=== PATIENT | male | born 1985 | race Caucasian/White ===

== ENCOUNTER 2024-07-18 18:23 | Emergency (ER) | payer BC, SELFPAY ==
[2024-07-18] VITALS (23 sets, daily range): BP systolic 118–150; BP diastolic 89–108; PULSE 62–96; RESP 16; TEMP 36.3; O2SAT 95–100; BMI 28.8
--- OUTSIDE RECORDS SUMMARY | 2024-07-18 18:26 | XMS_ITS | Clinical Summary ---
Author Organization [employer] [facility] Address [place] [address] Care Team Providers Care Social Contact Worker Name Role Phone John High DO Primary Care Provider [phone] Allergies No known active allergies Medications omeprazole 20 mg tabletIndication s:Gastroesophage al reflux disease, unspecified whether esophagitis present Take 1 Tablet (20 mg) by mouth once daily before a meal. 30 Tablet 1 3 Active nystatin powder (MYCOSTATIN) powderIndication s:Tinea cruris Apply 1 Strip topically to affected area(s) two times daily. 60 g 4 Active Active Problems No known active problems Immunizations Name Administration Dates Next Due AMB Influenza, IIV4 PF (=>6 mos Flulaval,Fluzone Fluarix)(Flu Clinic Only) 04/10/2020 COVID-19 vaccine (EximSoft-Trianz-Bio NTech 30mcg/0.3mL) 12YO+ BIVALENT PF, MDV 05/06/2022 Influenza, IIV3 (Age >=3 years) 06/11/2007,06/09 Influenza, IIV4 03/17/2023,04/21/2021 Influenza,CCIIV4 PRESERV FREE 04/24/2022 Meningococcal Vaccine (Menomune) 12/12/2002 Td (Age >=7 Years) 02/12/2022 Tdap 11/05/2010 Family History Medical History Relation Name Comments Diabetes Maternal Grandfather Relation Name Status Comments Father Alive Maternal Grandfather Mother Alive Social History Tobacco Use Types Packs/Day Years Used Date Smoking Tobacco: Never Smokeless Tobacco: Never Tobacco Cessation:Counseling Given: Yes Alcohol Use Standard Drinks/Week Comments Yes 2 (1 standard drink = 0.6 oz pur e alcohol) PHQ-2 Answer Date Recorded PHQ-2 TOTAL SCORE 0 02/23/2023 Social Connections Answer Date Recorded Frequency of Communication with Friends and Fami ly 0 02/23/2023 Financial Resource Strain Answer Date R ecorded Difficulty of Paying Living Expenses 3 02/23/2023 Difficulty of Paying Living Expenses Not on file 02/23/2023 Food Insecurity Answer Date Recorded Worried About Running Out of Food in the Last Ye ar 1 02/23/2023 Transportation Needs Answer Date Record ed Lack of Transportation (Medical) 1 02/23/2023 Housing Stability Answer Date Recorded Unable to Pay for Housing in the Last Year 1 02/23/2023 Sex and Gender Information Value Date Recorded Sex Assigned at Male 08/30/2020 5:44 AM RESIDENTIAL SOLAR CONSULTANT Legal Sex Male 5:24 AM RESIDENTIAL SOLAR CONSULTANT Gender Identity Male 08/30/2020 5:44 AM RESIDENTIAL SOLAR CONSULTANT Sexual Orientation Straight 08/30/2020 5: 44 AM RESIDENTIAL SOLAR CONSULTANT Occupation Industry Job Start Date Job End Date Not on file Not on file Not on file Not on file Obstetrics History Last Filed Vital Signs Vital Sign Reading Time Taken Comments Blood Pressure 134/91 09/20/2023 1:36 PM CDT Pulse 73 09/20/2023 1:36 PM CDT Temperature 36.7 C (98.1 F) 10/01/2020 9:11 AM CDT Respiratory Rate - - Oxygen Saturation 97% 08/04/2023 8:19 AM RESIDENTIAL SOLAR CONSULTANT Inhaled Oxygen Concentration - - Weight 90.6 kg (199 lb 12.8 oz) 08/04/2023 8:19 AM RESIDENTIAL SOLAR CONSULTANT Height 173 cm (5' 8.11) 06/04/2023 9: 24 AM RESIDENTIAL SOLAR CONSULTANT Body Mass Index 30.28 06/04/2023 9:24 AM RESIDENTIAL SOLAR CONSULTANT Plan of Treatment Health Maintenance Due Date Last Done Comments Depression screening for age 12+ 02/24/2024 02/23/2023, 08/30/2020, 07/22/2018, Additional history exists COVID-19 vaccine series ( season) 2024 05/06/2022, 06/03/2021, 10/29/2020, Additional history exists Influenza for age 9-49 02/27/2024 , 04/24/2022, 04/21/2021, Additional history exists BMI (ht and wt on same day) for age 18+ 06/04/2024 06/04/2023, 02/23/2023, 10/01/2020, Additional history exists Lipids for age 35-44 02/12/2027 02/12/2022 Tetanus booster 02/13/2032 02/12/2022, 11/05/2010 Tdap Completed 11/05/2010 HIV for age 15-65 Completed 09/20/2023, , 05/18/2022, Additional history exists Hepatitis C screening for age 18-79 Completed 09/20/2023, 06/04/2023, 08/30/2020, Additional history exists Pneumococcal series for age 6-49 Aged Out No longer eligible based on patient's age to complete this topic Procedures Procedure Name Priority Date/Time Associated Diagnosis Comments ANTI HIV 1/2 Routine 09/20/2023 2:13 PM CDT Routine screening for STI (sexually transmitted infection) ANTI HCV Routine 09/20/2023 2:13 PM CDT Routine screening for STI (sexually transmitted infection) LIPID PANEL W REFLEX MEASURED LDL Routine 02/12/2022 8:31 AM CDT Screening for lipid disorders from Last 3 Months or Most Recently Relevant to Health Maintenance Results * ANTI HCV (09/20/2023 2:13 PM CDT) HEPATITIS C ANTIBODY Non-Reacti ve Non-React jorge a 09/21/2023 12:19 AM CDT [facility] Comment:Please note, per www .CDC.gov: If a patient is known to be at high risk of HCV infection, or is symptomatic, and the physician's suspicion of HCV infection is high, HCV RNA testing is often employed and is of diagnostic value, even after an initial negative anti-HCV test result. Blood BLOOD SPECIMEN / Unknown Venipuncture / Unknown 09/20/2023 2:13 PM CDT 09/20/2023 2:16 PM CDT Vanessa Morales DO SEND OUTS Final Resu lt Performing Organization Address [facility] Co de Phone Number [facility] [address] [place] [id number], [place] * ANTI HIV 1/2 (09/20/2023 2:13 PM CDT) HIV-1/HIV-2 SCREEN Non-Reacti ve Non-Reacti ve 09/21/2023 12:55 AM CDT [facility] Comment:HIV-1 p24 and HIV-1/ HIV-2 Ab Not Detected. Blood BLOOD SPECIMEN / Unknown Venipuncture / Unknown 09/20/2023 2:13 PM CDT 09/20/2023 2:16 PM CDT Vanessa Morales DO SEND OUTS Final Resu lt Performing Organization Address [facility] de Phone Number [facility] [address] [place] [phone], [place] * (ABNORMAL) LIPID PANEL W REFLEX MEASURED LDL [[id number]] (02/12/2022 8:31 AM CDT) CHOLESTEROL,TOTAL 240(H) 100 - 199 mg/dL 02/12/2022 6:16 PM CDT [facility] TRIGLYCERIDES 86 <150 mg/dL 02/12/2022 6:16 PM CDT [facility] HDL CHOLESTEROL 58 >40 mg/dL 6:16 PM CDT [facility] NON-HDL CHOLESTEROL 182(H) <145 mg/dl 02/12/2022 6:16 PM CDT [facility] CHOL/HDL RATIO 4.14 <4.50 02/12/2022 6:16 PM CDT [facility] LDL CHOLESTEROL 165(H) <=130 mg/dL 02/12/2022 6:16 PM CDT [facility] VLDL CHOLESTEROL 17 <=30 mg/dL 02/12/2022 6:16 PM CDT [facility] PROVIDER ORDERED STATUS RANDOM 02/12/2022 6:16 PM CDT [facility] Blood BLOOD SPECIMEN / Unknown Venipuncture / Unknown 02/12/2022 8:31 AM CDT 02/12/2022 8:31 AM CDT us John High DO CHEMISTRY Final Result [facility] [address] [place] [address], [place] from Last 3 Months or Most Recently Relevant to Health Maintenance Insurance [facility] Care Teams Social Contact Worker Relationship Specialty Start Date End Date [place] [address] [address] [address] PCP - General Family Practice 02/23/23
--- NOTE | 2024-07-18 19:20 | CRLHL7_ITS ---
For Patients: As a result of the Cures Act, medical imaging exams and procedure reports are released immediately into your electronic medical record. You may view this report before your referring provider. If you have questions, please contact your health care provider. INDICATION: Chest pain. TECHNIQUE: Chest 2 views. COMPARISON: May 18, 2024. FINDINGS: Cardiovascular and mediastinum: Cardiomediastinal silhouette is within normal limits. Lungs and pleural spaces: Lungs are clear. No sign of pleural effusion. No pneumothorax. Bones and soft tissues: No significant findings. IMPRESSION: No acute findings and no significant change from the prior exam. Dictated by Sasha Carnes MD @ 07/18/2024 7:39:31 PM (Electronically Signed)
[2024-07-18 19:33] LABS: Basophils Absolute Auto 0.01 K/uL (0.00-0.30); Basophils Percent Auto 0.1 % (0.0-3.0); Eosinophils Absolute Auto 0.09 K/uL (0.00-0.50); Eosinophils Percent Auto 1.2 % (0.0-7.0); Hematocrit 47.1 % (37.0-53.0); Hemoglobin* 15.9 gm/dL (13.5-17.5); Immature Granulocytes Abs Auto 0.01 K/uL (0.00-0.30); Immature Granulocytes Pct Auto 0.1 %; Lymphocytes Absolute Auto 2.94 K/uL (0.90-2.90); Lymphocytes Percent Auto 39.3 % (20-44); Mean Corpuscular HGB Conc 34 gm/dL (32-36); Mean Corpuscular Hemoglobin 31 pg (26-34); Mean Corpuscular Volume 90 fL (80-100); Monocytes Percent Auto 7.3 % (0.0-11.0); Neutrophils Absolute Auto 3.89 K/uL (1.7-7.0); Platelet Count* 238 K/uL (140-440); RDW Coefficient of Variation % 12.1 % (11.5-15.5); Red Blood Count 5.21 m/uL (4.30-5.90); White Blood Count* 7.49 K/uL (4.50-11.00)
[2024-07-18 19:42] LABS: Troponin, Point-of-Care* 0.01 ng/ml (0.01-0.04)
--- OUTSIDE RECORDS SUMMARY | 2024-07-18 19:43 | XMS_ITS | Clinical Summary ---
Author Organization [email or web address] [facility] Address [place] [address] Care Team Providers Care Software Test Analyst Name Role Phone John High DO Primary Care Provider [phone] Allergies No known active allergies Medications omeprazole [...] Flulaval,Fluzone Fluarix)(Flu Clinic Only) 04/10/2020 COVID-19 vaccine (TouchBistro-Bio NTech 30mcg/0.3mL) 12YO+ BIVALENT PF, MDV 05/06/2022 [...] Sex Assigned at Male 08/30/2020 5:44 AM DIVISION SERGEANT Legal Sex Male 5:24 AM DIVISION SERGEANT Gender Identity Male 08/30/2020 5:44 AM DIVISION SERGEANT Sexual Orientation Straight 08/30/2020 5: 44 AM DIVISION SERGEANT Occupation Industry Job Start Date Job End [...] - Oxygen Saturation 97% 08/04/2023 8:19 AM DIVISION SERGEANT Inhaled Oxygen Concentration - - Weight 90.6 kg (199 lb 12.8 oz) 08/04/2023 8:19 AM DIVISION SERGEANT Height 173 cm (5' 8.11) 06/04/2023 9: 24 AM DIVISION SERGEANT Body Mass Index 30.28 06/04/2023 9:24 AM DIVISION SERGEANT Plan of Treatment Health Maintenance Due Date [...] Non-React jorge a 09/21/2023 12:19 AM CDT [facility] Comment:Please note, per www [...] OUTS Final Resu lt Performing Organization Address [facility] Co de Phone Number [facility] [address] [place] [phone], [place] * ANTI HIV 1/2 (09/20/2023 2:13 PM CDT) HIV-1/HIV-2 SCREEN Non-Reacti ve Non-Reacti ve 09/21/2023 12:55 AM CDT [facility] Comment:HIV-1 p24 and HIV-1/ HIV-2 Ab Not Detected. Blood BLOOD SPECIMEN / Unknown Venipuncture / Unknown 09/20/2023 2:13 PM CDT 09/20/2023 2:16 PM CDT Vanessa Morales DO SEND OUTS Final Resu lt Performing Organization Address [facility] de Phone Number [facility] [address] [place] [phone], [place] * (ABNORMAL) LIPID PANEL W REFLEX MEASURED LDL [[id number]] (02/12/2022 8:31 AM CDT) CHOLESTEROL,TOTAL 240(H) 100 - 199 mg/dL 02/12/2022 6:16 PM CDT [facility] TRIGLYCERIDES 86 <150 mg/dL 02/12/2022 6:16 PM CDT [facility] HDL CHOLESTEROL 58 >40 mg/dL 6:16 PM CDT [facility] NON-HDL CHOLESTEROL 182(H) <145 mg/dl 02/12/2022 6:16 PM CDT [facility] CHOL/HDL RATIO 4.14 <4.50 02/12/2022 6:16 PM CDT [facility] LDL CHOLESTEROL 165(H) <=130 mg/dL 02/12/2022 6:16 PM CDT [facility] VLDL CHOLESTEROL 17 <=30 mg/dL 02/12/2022 6:16 PM CDT [facility] PROVIDER ORDERED STATUS RANDOM 02/12/2022 6:16 PM CDT [facility] Blood BLOOD SPECIMEN / Unknown Venipuncture / Unknown 02/12/2022 8:31 AM CDT 02/12/2022 8:31 AM CDT us John High DO CHEMISTRY Final Result [facility] [address] [place] [address], [place] from Last 3 Months or Most Recently Relevant to Health Maintenance Insurance [facility] Care Teams Software Test Analyst Relationship Specialty Start Date [place] [address] [address] [place] [address] PCP - General Family Practice 02/23/23
--- NOTE | 2024-07-18 19:45 | ED.SOB ---
HPI - SOB/Dyspnea General Date Seen: 07/18/24 <Nelson Zamora MD - Last Filed: 07/18/24 21:26> Chief Complaint: Shortness of Breath/Dyspnea <Nelson Zamora MD - Last Filed: 07/18/24 21:26> Stated Complaint: Sent by UC-left arm and jaw pain, SOB <Nelson Zamora MD - Last Filed: 07/18/24 21:26> Time Seen by Provider: 07/18/24 19:06 <Nelsno Zamora MD - Last Filed: 07/18/24 21:26> Source: patient <Nelson Zamora MD - Last Filed: 07/18/24 21:26> Mode of arrival: ambulatory <Nelson Zamora MD - Last Filed: 07/18/24 21:26> Limitations: no limitations <Nelson Zamora MD - Last Filed: 07/18/24 21:26> History of Present Illness HPI Narrative: Patient is the 38-year-old gentleman, who presents here with shortness of breath he was 1st seen in urgent care, complains of shortness of breath the last few days, any sort of activities like conversing or walking. He had previous symptoms like this in April when he was described to have walking pneumonia. He has may had some left arm and jaw pain today, he admits to anxiety however when he was at urgent care any said the longer was her the more anxiety add. He does have a history of being on a flight approximately 1 week ago from [place] No previous history of cardiac disease, no history of DVTs or pulmonary emboli, No history of hypertension, elevated lipids, and diabetes, no smoking history, family history of his grandfather having a pacemaker in his 70s. Did receive both influenza and COVID vaccinations. Although the most recent COVID he said he did not have. Denies any pleuritic pain, denies any chest discomfort, denies any cough really associated with this hemoptysis, nausea vomiting, back pain, <Nelson Zamora MD - Last Filed: 07/18/24 21:26> Known history of: recurrent pneumonia <Nelson Zamora MD - Last Filed: 07/18/24 21:26> Treatment prior to arrival: none <Nelson Zamora MD - Last Filed: 07/18/24 21:26> Related Data Home oxygen amount: none <Nelson Zamora MD - Last Filed: 07/18/24 21:26> Home Medications: Home Medications ?Medication ?Instructions ?Recorded ?Confirmed No Known Home Medications 07/18/24 07/18/24 <Nelson Zamora MD - Last Filed: 07/18/24 21:26> Allergies/Adverse Reactions: Allergies Allergy/AdvReac Type Severity Reaction Status Date / Time No Known Drug Allergies Allergy Verified 07/18/24 17:28 <Nelson Zamora MD - Last Filed: 07/18/24 21:26> [facility] Social History: Social History Smoking Status: Never smoker Do you use any of these nicotine containing products: None How often do you have a drink containing alcohol: never AUDIT-C Alcohol total score: 0 Non-prescribed substance use: denies use <Nelson Zamora MD - Last Filed: 07/18/24 21:26> Exam Narrative: Exam Narrative: On examination he is in no apparent distress he is seen and stabilization room 2 he is speaking to me in full sentences does not appear to be short of breath, pupils equal round reactive to light there is no scleral icterus redness is TMs are normal his oropharynx normal there is no adenopathy anterior posterior chains his chest is good air entry bilaterally no wheezing crackles noted his heart sounds no clicks murmurs or gallops there is no wheezing audible. No pleuritic pain, or splinting notable. Abdomen is soft, no tenderness to palpation, easily reducible umbilical hernias noted. Moves all extremities independently well absence of edema of his lower extremities, and negative Homans sign. Skin reveals no petechiae rashes, neurologically intact moving upper lower extremities both proximal distal muscle strength and purposeful movement are normal <Nelson Zamora MD - Last Filed: 07/18/24 21:26> Const: Vital Signs, click to edit/add: Vital Signs - 24 hr 07/18/24 18:29 07/18/24 18:35 07/18/24 19:38 Temperature 97.4 F L Pulse Rate 75 Pulse Rate [Pulse Oximeter] 96 Respiratory Rate 16 Blood Pressure Blood Pressure [Ri ght Upper Arm] 150/108 H Pulse Oximetry 99 100 96 Oxygen Delivery Me thod Room Air 07/18/24 19:45 07/18/24 20:00 07/18/24 20:02 Temperature Pulse Rate 74 71 71 Pulse Rate [Pulse Oximeter] Respiratory Rate Blood Pressure 129/106 H Blood Pressure [Ri ght Upper Arm] Pulse Oximetry 97 97 97 Oxygen Delivery Me thod 07/18/24 20:15 07/18/24 20:30 07/18/24 20:32 Temperature Pulse Rate 72 72 71 Pulse Rate [Pulse Oximeter] Respiratory Rate Blood Pressure 140/103 H Blood Pressure [Ri ght Upper Arm] Pulse Oximetry 97 97 95 Oxygen Delivery Me thod 07/18/24 20:45 07/18/24 21:00 07/18/24 21:01 Temperature Pulse Rate 75 72 69 Pulse Rate [Pulse Oximeter] Respiratory Rate Blood Pressure 136/99 H Blood Pressure [Ri ght Upper Arm] Pulse Oximetry 96 95 97 Oxygen Delivery Me thod 07/18/24 21:15 07/18/24 21:30 07/18/24 21:32 Temperature Pulse Rate 68 70 67 Pulse Rate [Pulse Oximeter] Respiratory Rate Blood Pressure 118/89 Blood Pressure [Ri ght Upper Arm] Pulse Oximetry 97 97 97 Oxygen Delivery Me thod 07/18/24 21:33 07/18/24 21:45 07/18/24 22:00 Temperature Pulse Rate 66 78 72 Pulse Rate [Pulse Oximeter] Respiratory Rate Blood Pressure Blood Pressure [Ri ght Upper Arm] Pulse Oximetry 96 97 97 Oxygen Delivery Me thod 07/18/24 22:01 07/18/24 22:22 Temperature Pulse Rate 67 74 Pulse Rate [Pulse Oximeter] Respiratory Rate Blood Pressure 128/95 H Blood Pressure [Ri ght Upper Arm] Pulse Oximetry 96 99 Oxygen Delivery Me thod <Nelson Zamora MD - Last Filed: 07/18/24 21:26> Vital Signs, click to edit/add: Vital Signs - 24 hr 07/18/24 18:29 07/18/24 18:35 07/18/24 19:38 Temperature 97.4 F L Pulse Rate 75 Pulse Rate [Pulse Oximeter] 96 Respiratory Rate 16 Blood Pressure Blood Pressure [Ri ght Upper Arm] 150/108 H Pulse Oximetry 99 100 96 Oxygen Delivery Me thod Room Air 07/18/24 19:45 07/18/24 20:00 07/18/24 20:02 Temperature Pulse Rate 74 71 71 Pulse Rate [Pulse Oximeter] Respiratory Rate Blood Pressure 129/106 H Blood Pressure [Ri ght Upper Arm] Pulse Oximetry 97 97 97 Oxygen Delivery Me thod 07/18/24 20:15 07/18/24 20:30 07/18/24 20:32 Temperature Pulse Rate 72 72 71 Pulse Rate [Pulse Oximeter] Respiratory Rate Blood Pressure 140/103 H Blood Pressure [Ri ght Upper Arm] Pulse Oximetry 97 97 95 Oxygen Delivery Me thod 07/18/24 20:45 07/18/24 21:00 07/18/24 21:01 Temperature Pulse Rate 75 72 69 Pulse Rate [Pulse Oximeter] Respiratory Rate Blood Pressure 136/99 H Blood Pressure [Ri ght Upper Arm] Pulse Oximetry 96 95 97 Oxygen Delivery Me thod 07/18/24 21:15 07/18/24 21:30 07/18/24 21:32 Temperature Pulse Rate 68 70 67 Pulse Rate [Pulse Oximeter] Respiratory Rate Blood Pressure 118/89 Blood Pressure [Ri ght Upper Arm] Pulse Oximetry 97 97 97 Oxygen Delivery Me thod 07/18/24 21:33 07/18/24 21:45 07/18/24 22:00 Temperature Pulse Rate 66 78 72 Pulse Rate [Pulse Oximeter] Respiratory Rate Blood Pressure Blood Pressure [Ri ght Upper Arm] Pulse Oximetry 96 97 97 Oxygen Delivery Me thod 07/18/24 22:01 07/18/24 22:22 Temperature Pulse Rate 67 74 Pulse Rate [Pulse Oximeter] Respiratory Rate Blood Pressure 128/95 H Blood Pressure [Ri ght Upper Arm] Pulse Oximetry 96 99 Oxygen Delivery Me thod <Magalie Johnson MD - Last Filed: 07/18/24 22:38> Documenting provider has reviewed patient's vital signs: yes <Nelson Zamora MD - Last Filed: 07/18/24 21:26> Course Course ED Course: Jerrod was signed out by Dr. Zaomra who strongly felt that Jerrod was experiencing an asthma exacerbation. To be thorough however he did have a 2nd troponin and CT of the chest PE protocol pending. Asked to review the CT and troponin and if reassuring and negative discharge home based on Dr Zamora instruction. CTs without evidence of PE or abnormality. Second troponin is negative. Discussed with patient that Dr. Zamora felt that this was an asthma exacerbation and that we have a clear CT and reassuring troponins. Spoke to him about the use of prednisone for 5 days as anti-inflammatory and a side effect can include difficulty sleeping. Also spoke about the use of inhalers to be used every 4 hours as needed while awake. These were already entered into our system by previous physician. Patient discharged feeling improved. <Magalie Johnson MD - Last Filed: 07/18/24 22:38> Reevaluation(s) Time of Reevaluation #1: 21:26 <Nelson Zamora MD - Last Filed: 07/18/24 21:26> Reevaluation #1: I signed him over to my partner Dr. Morgan for further delineation after CT scan and treatment <Nelson Zamora MD - Last Filed: 07/18/24 21:26> Vital Signs Vital signs: Initial Vital Signs Temperature 97.4 F L 07/18/24 18:29 Temperature Source Temporal Artery Scan 07/18/24 18:29 Pulse Rate 96 07/18/24 18:29 Respiratory Rate 16 07/18/24 18:29 Blood Pressure 150/108 H 07/18/24 18:29 Blood Pressure Mean 122 H 07/18/24 18:29 Blood Pressure Position Sitting 07/18/24 18:29 Pulse Oximetry 99 07/18/24 18:29 Oxygen Delivery Method Room Air 07/18/24 18:29 Vital Signs Temperature 97.4 F L 07/18/24 18:29 Pulse Rate 96 07/18/24 18:29 Respiratory Rate 16 07/18/24 18:29 Blood Pressure 150/108 H 07/18/24 18:29 Pulse Oximetry 99 07/18/24 18:29 Oxygen Delivery Method Room Air 07/18/24 18:29 Temperature 97.4 F L 07/18/24 18:29 Pulse Rate 62 07/18/24 22:45 Respiratory Rate 16 07/18/24 18:29 Blood Pressure 146/108 H 07/18/24 22:32 Pulse Oximetry 96 07/18/24 22:45 Oxygen Delivery Method Room Air 07/18/24 18:29 <Nelson Zamora MD - Last Filed: 07/18/24 21:26> Initial Vital Signs Temperature 97.4 F L 07/18/24 18:29 Temperature Source Temporal Artery Scan 07/18/24 18:29 Pulse Rate 96 07/18/24 18:29 Respiratory Rate 16 07/18/24 18:29 Blood Pressure 150/108 H 07/18/24 18:29 Blood Pressure Mean 122 H 07/18/24 18:29 Blood Pressure Position Sitting 07/18/24 18:29 Pulse Oximetry 99 07/18/24 18:29 Oxygen Delivery Method Room Air 07/18/24 18:29 Vital Signs Temperature 97.4 F L 07/18/24 18:29 Pulse Rate 96 07/18/24 18:29 Respiratory Rate 16 07/18/24 18:29 Blood Pressure 150/108 H 07/18/24 18:29 Pulse Oximetry 99 07/18/24 18:29 Oxygen Delivery Method Room Air 07/18/24 18:29 Temperature 97.4 F L 07/18/24 18:29 Pulse Rate 62 07/18/24 22:45 Respiratory Rate 16 07/18/24 18:29 Blood Pressure 146/108 H 07/18/24 22:32 Pulse Oximetry 96 07/18/24 22:45 Oxygen Delivery Method Room Air 07/18/24 18:29 <Magalie Johnson MD - Last Filed: 07/18/24 22:38> Medications Administered Medications: Discontinued Medications Generic Name Dose Route Start Last Admin Trade Name Freq PRN Reason Stop Dose Admin Albuterol 2.5 mg 07/18/24 21:14 07/18/24 21:28 Albuterol Sulfate 2.5 Mg/3 Ml Vial.Neb NEB 07/18/24 21:15 2.5 mg ONCE ONE Administration Aspirin 324 mg 07/18/24 19:19 07/18/24 20:06 Aspirin 81 Mg Tab.Chew PO 07/18/24 19:20 324 mg ONCE ONE Administration <Nelson Zamora MD - Last Filed: 07/18/24 21:26> Discontinued Medications Generic Name Dose Route Start Last Admin Trade Name Freq PRN Reason Stop Dose Admin Albuterol 2.5 mg 07/18/24 21:14 07/18/24 21:28 Albuterol Sulfate 2.5 Mg/3 Ml Vial.Neb NEB 07/18/24 21:15 2.5 mg ONCE ONE Administration Aspirin 324 mg 07/18/24 19:19 07/18/24 20:06 Aspirin 81 Mg Tab.Chew PO 07/18/24 19:20 324 mg ONCE ONE Administration <Magalie Johnson MD - Last Filed: 07/18/24 22:38> MDM - SOB/Dyspnea MDM Narrative Medical decision making narrative: Life-threatening differential diagnosis includes occluded COPD exacerbation, pulmonary edema, acute coronary syndromes, pulmonary embolism, pneumonia, and pneumothorax. Other differential diagnosis considerations include asthma, bronchitis as well as other etiologies <Nelson Zamora MD - Last Filed: 07/18/24 21:26> Medical Records Attestation: I reviewed the patient's medical records. <Nelson Zamora MD - Last Filed: 07/18/24 21:26> Lab Data Labs: Lab Results 07/18/24 07/18/24 07/18/24 Range/Units 19:20 21:20 Unknown WBC 7.49 (4.50-11.00) K/uL RBC 5.21 (4.30-5.90) m/uL Hgb 15.9 (13.5-17.5) gm/dL Hct 47.1 (37.0-53.0) % MCV 90 (80-100) fL MCH 31 (26-34) pg MCHC 34 (32-36) gm/dL RDW Coeff of Tika 12.1 (11.5-15.5) % Plt Count 238 (140-440) K/uL Neut % (Auto) 52.0 (42.0-72.0) % Lymph % (Auto) 39.3 (20-44) % Holmes % (Auto) 7.3 (0.0-11.0) % Eos % (Auto) 1.2 (0.0-7.0) % Baso % (Auto) 0.1 (0.0-3.0) % Neut # (Auto) 3.89 (1.7-7.0) K/uL Lymph # (Auto) 2.94 H (0.90-2.90) K/uL Holmes # (Auto) 0.50 (0.00-0.90) K/UL Eos # (Auto) 0.09 (0.00-0.50) K/uL Baso # (Auto) 0.01 (0.00-0.30) K/uL Abs Immat Gran (auto) 0.01 (0.00-0.30) K/uL Imm/Tot Granulo (auto) 0.1 % INR 0.91 (0.91-1.10) APTT 29 (23-33) Seconds D-Dimer Quant (PE/DVT) < 0.27 (0.00-0.50) ug/ml Sodium 137 (135-149) mmol/L Potassium 3.6 (3.6-5.1) mmol/L Chloride 102 (96-114) mmol/L Carbon Dioxide 26 (20-32) mmol/L Anion Gap 9 (7-15) mEq/L BUN 13 (5-24) mg/dL Creatinine 0.8 (0.5-1.5) mg/dL Estimated Creat Clear 123.97 Estimated GFR 115 ml/min Glucose 100 (60-115) mg/dL Calcium 9.6 (8.4-10.6) mg/dL NT-Pro-B Natriuret Pep 25 pg/mL SARS-CoV-2 (PCR) Negative SARS-CoV-2 (Negative) Influenza Type A (PCR) Negative PCR FLU A (Negative) Influenza Type B (PCR) Negative PCR FLU B (Negative) RSV (PCR) Negative PCR RSV (Negative) POC Troponin I 0.01 0.00 L (0.01-0.04) ng/ml <Nelson Zamora MD - Last Filed: 07/18/24 21:26> Lab Results 07/18/24 07/18/24 07/18/24 Range/Units 19:20 21:20 Unknown WBC 7.49 (4.50-11.00) K/uL RBC 5.21 (4.30-5.90) m/uL Hgb 15.9 (13.5-17.5) gm/dL Hct 47.1 (37.0-53.0) % MCV 90 (80-100) fL MCH 31 (26-34) pg MCHC 34 (32-36) gm/dL RDW Coeff of Tika 12.1 (11.5-15.5) % Plt Count 238 (140-440) K/uL Neut % (Auto) 52.0 (42.0-72.0) % Lymph % (Auto) 39.3 (20-44) % Holmes % (Auto) 7.3 (0.0-11.0) % Eos % (Auto) 1.2 (0.0-7.0) % Baso % (Auto) 0.1 (0.0-3.0) % Neut # (Auto) 3.89 (1.7-7.0) K/uL Lymph # (Auto) 2.94 H (0.90-2.90) K/uL Holmes # (Auto) 0.50 (0.00-0.90) K/UL Eos # (Auto) 0.09 (0.00-0.50) K/uL Baso # (Auto) 0.01 (0.00-0.30) K/uL Abs Immat Gran (auto) 0.01 (0.00-0.30) K/uL Imm/Tot Granulo (auto) 0.1 % INR 0.91 (0.91-1.10) APTT 29 (23-33) Seconds D-Dimer Quant (PE/DVT) < 0.27 (0.00-0.50) ug/ml Sodium 137 (135-149) mmol/L Potassium 3.6 (3.6-5.1) mmol/L Chloride 102 (96-114) mmol/L Carbon Dioxide 26 (20-32) mmol/L Anion Gap 9 (7-15) mEq/L BUN 13 (5-24) mg/dL Creatinine 0.8 (0.5-1.5) mg/dL Estimated Creat Clear 123.97 Estimated GFR 115 ml/min Glucose 100 (60-115) mg/dL Calcium 9.6 (8.4-10.6) mg/dL NT-Pro-B Natriuret Pep 25 pg/mL SARS-CoV-2 (PCR) Negative SARS-CoV-2 (Negative) Influenza Type A (PCR) Negative PCR FLU A (Negative) Influenza Type B (PCR) Negative PCR FLU B (Negative) RSV (PCR) Negative PCR RSV (Negative) POC Troponin I 0.01 0.00 L (0.01-0.04) ng/ml <Magalie Johnson MD - Last Filed: 07/18/24 22:38> ECG Data Attestation: I personally reviewed and interpreted this ECG as follows: <Nelson Zamora MD - Last Filed: 07/18/24 21:26> ECG interpretation date: 07/18/24 <Nelson Zamora MD - Last Filed: 07/18/24 21:26> Prior ECG tracings: available for review <Nelson Zamora MD - Last Filed: 07/18/24 21:26> Interpretation: EKG is done shows normal sinus rhythm, with normal QRS QT QTC. Ventricular rate is 81, incomplete right bundle-branch block is noted. EKG from earlier today at urgent cares compared to, it is not appreciably different. <Nelson Zamora MD - Last Filed: 07/18/24 21:26> Discharge Plan Discharge Clinical Impression: Asthma with acute exacerbation, Shortness of breath <Nelson Zamora MD - Last Filed: 07/18/24 21:26> Patient Disposition: Home w/ Parent or Adult <Nelson Zamora MD - Last Filed: 07/18/24 21:26> Condition: Stable <Nelson Zamora MD - Last Filed: 07/18/24 21:26> Instructions: Asthma (ED), How to Use a Peak Flow Meter (ED), How to Use a Metered-Dose Inhaler and a Spacer (ED), Wheezing (ED) <Nelson Zamora MD - Last Filed: 07/18/24 21:26> Additional Instructions: Home, rest, MDI, use of prednisone, follow-up with her primary MD, back here if increasing shortness of breath or other issues.Rx for instymeds for Prednisone 20 mg po bid for 5 days, and Albuterol MDI If the albuterol is too expensive in our vending machine, decline it and we will send a prescription to your pharmacy. Follow-up with your regular clinic for recheck. Return for worsening symptoms. <Nelson Zamora MD - Last Filed: 07/18/24 21:26> Activity Level: Light activity <Nelson Zamora MD - Last Filed: 07/18/24 21:26> Light activity <Magalie Johnson MD - Last Filed: 07/18/24 22:38> Prescriptions: No Action No Known Home Medications <Nelson Zamora MD - Last Filed: 07/18/24 21:26> Follow Up/Referrals: KATHY CANAS DO [Primary Care Provider] - <Nelson Zamora MD - Last Filed: 07/18/24 21:26> Stand Alone Forms: MyHealth Info Instructions <Nelson Zamora MD - Last Filed: 07/18/24 21:26>
[2024-07-18] MEDS: ASPIRIN 81 MG TAB.CHEW 324 MG PO (20:06)
[2024-07-18 20:11] LABS: Chloride* 102 mmol/L (96-114); Sodium* 137 mmol/L (135-149)
[2024-07-18 20:12] LABS: Potassium* 3.6 mmol/L (3.6-5.1); Slide Review Reflex No
[2024-07-18 20:14] LABS: Anion Gap 9 mEq/L (7-15); Carbon Dioxide* 26 mmol/L (20-32); Creatinine* 0.8 mg/dL (0.5-1.5); Est. Creatinine Clearance* 123.97; Estimated Glomerular Filt Rate 115 ml/min; INR 0.91 (0.91-1.10); Prothrombin Time 12.8 Seconds
[2024-07-18 20:15] LABS: Blood Urea Nitrogen* 13 mg/dL (5-24); Calcium* 9.6 mg/dL (8.4-10.6); Glucose* 100 mg/dL (60-115)
[2024-07-18 20:16] LABS: Partial Thromboplastin Time* 29 Seconds (23-33)
[2024-07-18 20:25] LABS: D Dimer Quantitative* < 0.27 ug/ml (0.00-0.50)
[2024-07-18 20:26] LABS: NT Pro B Type NatriureticPept* 25 pg/mL
[2024-07-18 20:29] LABS: PCR FLU A Negative PCR FLU A (Negative); PCR FLU B Negative PCR FLU B (Negative); PCR RSV Negative PCR RSV (Negative); SARS PCR* Negative SARS-CoV-2 (Negative)
--- NOTE | 2024-07-18 21:14 | CRLHL7_ITS ---
For Patients: As a result of the Century Cures Act, medical imaging exams and procedure reports are released immediately into your electronic medical record. You may view this report before your referring provider. If you have questions, please contact your health care provider. INDICATION: Shortness of breath. TECHNIQUE: CT chest PE was acquired with 100 cc Omnipaque 350 IV contrast. MIP reconstructions were performed. COMPARISON: None. FINDINGS: Heart and vasculature: Contrast opacification of the pulmonary arterial tree is adequate. No sign of pulmonary embolism. Heart size is normal. Thoracic aorta and pulmonary artery are normal in caliber. Lungs and pleura: No suspicious nodules or infiltrates. No pleural effusions, pleural thickening, or pneumothorax. Lymph nodes/mediastinum: Tiny hiatal hernia. No mediastinal, hilar, or axillary adenopathy. Chest wall: No masses. Upper abdomen: No acute or significant findings. Bones: Unremarkable for age. IMPRESSION: No pulmonary embolism. No focal consolidations. Please note that all CT scans at this facility use dose modulation, iterative reconstruction, and/or weight-based dosing when appropriate to reduce radiation dose to as low as reasonably achievable. Dictated by Gallo Roque MD @ 07/18/2024 10:20:48 PM (Electronically Signed)
[2024-07-18] MEDS: ALBUTEROL SULFATE 2.5 MG/3 ML VIAL.NEB NEB (21:28)
== END 2024-07-18 23:03 | disposition home or self-care (01) ==
PROVIDERS: Family Medicine; Emergency Provider Family Medicine; PCP Student in an Organized Health Care Education/Training Program
DX: J44.1 Chronic obstructive pulmonary disease with (acute) exacerbation (principal)
CPT/HCPCS: 36415; 71046; 71275; 80048; 83880; 84484; 85025; 85379; 85610; 85730; 87631; 93005; 94640; 94761; 99284; 99285; A9270; Q9967